=== PATIENT | male | born 1960 | race Two or more races ===

== ENCOUNTER 2016-11-01 17:59 | Emergency (ER) | payer OTHER ==
[~2016-11-01] VITALS: Ht 165.1 cm; Wt 77.1 kg
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
[2016-11-01] MEDS ORDERED: IBUPROFEN600 MG ORAL (20:38)
[2016-11-01] MEDS ORDERED: TYLENOL EXTRA500 MG ORAL (20:38)
[2016-11-01] MEDS ORDERED: BACITRACIN ZINC1 GM TOPIC (20:38)
[2016-11-01] MEDS ORDERED: Bacitracin Oint UD TOPIC ONE (20:45)
[2016-11-01 21:00] VITALS: BP 132/76
--- NOTE | 2016-11-02 09:44 | Diagnostic Imaging Report ---
Indication: Headache Technique: Contiguous 5 mm thick transaxial imaging of the head obtained in a Siem[employer] Sensation [address] scanner. Soft tissue and bone windows generated. Total Dose length Product (DLP): [address] Dose Index Volume (CTDIvol): 70.38 mGy Comparison: none Findings: The size and configuration of the cortical sulci, basal cisterns, and ventricles are within normal limits for age. There is no mass effect, midline shift, or edema identified. There is no evidence of acute hemorrhage or abnormal intra-axial or extra-axial fluid collections. The bones and soft tissues are unremarkable. Mucosal thickening in the paranasal sinuses noted. Impression: No mass effect, edema or acute bleed. Sinusitis The CT scanner at [facility] is accredited by the [employer] and the scans are performed using protocols designed to limit radiation exposure to as low as reasonably achievable to attain images of sufficient resolution adequate for diagnostic evaluation.
--- NOTE | 2016-11-02 13:54 | Diagnostic Imaging Report ---
Indication: Pain Findings: 3 views of the left shoulder were obtained. Alignment of the left shoulder is normal. No acute fracture is identified. Soft tissues are unremarkable. Narrowing and sclerosis of the a.c. joint noted. Impression: No acute injury
== END 2016-11-01 21:00 | disposition home or self-care (01) ==
LOC: EDBD 17:59 → EMR 18:35
DX: S40.012A Contusion of left shoulder, initial encounter (principal); S00.83XA Contusion of other part of head, initial encounter; V13.4XXA Pedal cycle driver injured in collision with car, pick-up truck or van in traffic accident, initial encounter; Y93.9 Activity, unspecified; Y92.9 Unspecified place or not applicable; Y99.9 Unspecified external cause status; S80.812A Abrasion, left lower leg, initial encounter; S80.811A Abrasion, right lower leg, initial encounter; F07.81 Postconcussional syndrome; G44.309 Post-traumatic headache, unspecified, not intractable; M25.512 Pain in left shoulder; Z79.82 Long term (current) use of aspirin
CPT/HCPCS: 70450; 99284